=== PATIENT | female | born 1985 | race Caucasian/White ===

== ENCOUNTER 2016-08-24 19:52 | Emergency (ER) | payer OTHER ==
[~2016-08-24] VITALS: Ht 154.9 cm; Wt 77.3 kg
[~2016-08-24 19:52] MED LIST: CIPR-231 PO; HYDR-4003 PO; IBUP800T28 PO; LEVO200T PO; ONDA4TAB6 PO
[2016-08-24 19:53] VITALS: BP 116/79; PULSE 73; RESP 12; O2SAT 100
--- NOTE | 2016-08-24 20:21 | DRSVH ---
PROCEDURE: X-RAY RIGHT FOOT COMPLETE, MINIMUM THREE VIEWS ([id number]) INDICATIONS: right foot pain TECHNIQUE: 3 views of the foot were acquired. COMPARISON: None. FINDINGS: Bones: No fractures or dislocations. No suspicious bony lesions. First [facility] osteoarthritic degenera tive changes are noted. Soft tissues: No tibiotalar joint effusion. Achilles tendon appears normal. IMPRESSION: No fracture. No acute osseous lesion. If there are persistent symptoms or clinical suspi cion for pathology, then repeat radiographs or advanced imaging (CT, MRI or bone scan) should be cons idered for further evaluation. Dictated by: Remedios Rodriguez MD, PhD on 08/24/2016 at 20:18 Approved by: Remedios Rodriguez MD, PhD on 08/24/2016 at 20:19
--- NOTE | 2016-08-24 21:11 | ED.REPORT ---
HPI-Extremity Problem Lower Date of Service Aug 24, 2016 ED Provider: MD Mark This is a 31 year old female with a history of kidney disease, migraines, chronic low back pain, kidney stones, hypothyroidism presenting to the emergency department due to right foot pain that began one week ago due to traumatic injury. Patient reports a metal tool falling directly onto her right foot. She describes progressively worsening pain with increasing swelling. Associated symptoms include intermittent numbness of the foot. She denies left foot pain, weakness, or any other injuries at this time. Nursing Notes Stated Complaint: FOOT PAIN, FELL A FEW WEEKS AGO Chief Complaint: Extremity Trauma Nursing Notes Reviewed: Yes Allergies: Coded Allergies: Cephalosporins (Verified Allergy, Severe, CEFTRIAXONE, 08/24/16) azithromycin (Verified Allergy, Severe, 08/24/16) erythromycin ethylsuccinate (Verified Allergy, Severe, 08/24/16) sertraline (Verified Allergy, Severe, 08/24/16) sulfamethoxazole (Verified Allergy, Severe, 07/13/12) Replaces SULFAMETHOXAZ trimethoprim (Verified Allergy, Severe, 02/27/09) Replaces SULFAMETHOXAZ Uncoded Allergies: Azithromycin (Adverse Reaction, Severe, 08/18/03) Sertraline (Adverse Reaction, Severe, 08/18/03) Scheduled Levothyroxine-Expunged Drug, Do Not Renew! (Synthroid-Expunged Drug, Do Not Renew!) 200 Mcg Tablet 400 MCG PO DAILYAC Scheduled PRN Ibuprofen (Ibuprofen) 600 Mg Tablet 600 MG PO QID PRN PRN For Pain General Time Seen by MD: 21:10 Chief Complaint Foot injury right Hx Obtained From: Patient Arrived By: Walk-in Onset Occurred: 1 week ago Symptom Duration: Since onset Severity: Current: Moderate Pertinent Negative: Pt denies other symptoms Recent Healthcare: No recent doctor visit, No recent hospitalization Similar Sx Previous: No Past Medical History Past Medical History Chiari malformation Kidney disease Hx of migraines Chronic lower back pain Hx of kidney stones Hypothyroidism Hashimotos Past Surgical History Chiari malfortation surgery Reports: Appendectomy, , Hysterectomy Reports: Carpal tunnel, Tubal ligation Family History noncontributory Smoking History Never Smoker Social History Alcohol Use: "Social" Drug Use: THC Other Social History: Good social support, Local resident Ambulatory Status Independent Review of Systems Constitutional: Denies: Chills, Fever Musculoskeletal: Reports: Extremity pain, Extremity swelling, Denies: Back pain, Neck pain Neurologic: Denies: Change LOC, Headache, Weakness Complete sys rev & neg: except as marked. Physical Exam Initial Vital Signs Vital Signs (First) Date Time Temp Pulse Resp B/P Pulse Ox O2 Delivery O2 Flow Rate FiO2 08/24/16 19:53 36.7 73 12 116/79 100 Room Air Initial VS: Reviewed General/Constitutional: Well-developed, Well-nourished Head / Eyes: Atraumatic, Normocephalic, PERRL ENT: Mucous membranes moist, Conjunctiva normal, No scleral icterus Neck: Supple, Non-tender, Full range of motion Respiratory: Breath sounds normal, Clear to auscultation, No respiratory distress Cardiovascular: Regular rate & rhythm, Heart sounds normal, Intact distal pulses Skin: Warm, Dry, No cyanosis Neurologic: Alert, Oriented, Nonfocal Psychiatric: Mood/affect normal, Behavior normal, Normal thought content Lower Extremity / Pelvis / MS: Atraumatic, Inspection NL, Full range of motion , No swelling, Non-tender, No erythema, No deformity, Neurologic intact, Vascular intact, No edema Ankle / Foot: Neurologic intact, Vascular intact Slight swelling at the top of R foot with tenderness to palpation over the MCP and tarsals of the first ray Interpretation & Diagnostics Interpretation & Diagnostics: RIGHT FOOT X-RAY IMPRESSION: No fracture. No acute osseous lesion. If there are persistent symptoms or clinical suspicion for pathology, then repeat radiographs or advanced imaging (CT, MRI or bone scan) should be considered for further evaluation. Dictated by: Remedios Rodriguez MD, PhD on 08/24/2016 at 20:18 Approved by: Remedios Rodriguez MD, PhD on 08/24/2016 at 20:19 Re-Eval/Medical Decision Med Decision/Clinical Course 31-year-old presents a week out from an injury where she dropped a 25 pound wrench on her foot. It was better initially and is become swollen and tender again. X-rays negative for fracture. Mayur wrap postop shoe provided. Crutches provided. Requesting work note which was provided. Home with ibuprofen for pain relief. Elevation and heat per standard protocol 1 week out from a contusion injury. Follow up with PCP. Counseled Regarding: Diagnosis, Lab results, Need for follow-up, When/why to return to ED Discharge & Departure Impression: Primary Impression: Contusion, foot Encounter type: initial encounter Laterality: right Qualified Code: S90.31XA - Contusion of right foot, initial encounter Disposition: Home Discharge Condition All VS Reviewed: Yes Condition: Stable Additional Instructions: The primary issue with your injury is mechanical. It is important to reduce the swelling by elevating the foot whenever possible. You are probably past the period of time and ice as helpful. Instead, apply heat 4-5 times daily and elevate. Mayur wrap and postop shoe and crutches whenever up. Remove all to sleep. Follow up with your doctor in the office. She can make an orthopedic referral if your symptoms are not improving. Ibuprofen four times daily with food for pain. Return if any immediate issues. Referrals: Charisse Arvizu MD (PCP) Peter Ruelas MD Attestation Portions of this note were transcribed by April Fowler. I, Dr. Flores personally performed the history, physical exam and medical decision-making; I reviewed and confirmed the accuracy of the information in the transcribed note. Signed by Akbar Ross, 08/24/2016 at 06:00. copies to: Peter Ruelas MD, Christopher W MD Aug 24, 2016 21:11 APRIL FOWLER Aug 24, 2016 21:22
[2016-08-24] MEDS ORDERED: IBUP-1827 PO (21:29)
[2016-08-24 21:38] VITALS: BP 108/69; PULSE 108; O2SAT 98
== END 2016-08-24 21:57 | disposition home or self-care (01) ==
LOC: SED 19:52
DX: S90.31XA Contusion of right foot, initial encounter (principal); W20.8XXA Other cause of strike by thrown, projected or falling object, initial encounter; Y93.89 Activity, other specified; Y92.9 Unspecified place or not applicable; Y99.8 Other external cause status; E03.9 Hypothyroidism, unspecified; G89.29 Other chronic pain; Z88.2 Allergy status to sulfonamides; Z88.1 Allergy status to other antibiotic agents; Z88.8 Allergy status to other drugs, medicaments and biological substances

== ENCOUNTER 2016-11-20 13:18 | Emergency (ER) | payer OTHER ==
[~2016-11-20] VITALS: Ht 154.9 cm; Wt 74.1 kg
[~2016-11-20 13:18] MED LIST changes: -CIPR-231 PO; -HYDR-4003 PO; +IBUP-1827 PO; -IBUP800T28 PO; -ONDA4TAB6 PO
[2016-11-20 13:20] VITALS: BP 123/78; RESP 14; O2SAT 100
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
--- NOTE | 2016-11-20 14:52 | DRSVH ---
PROCEDURE: CT FACE WITHOUT CONTRAST ([id number]) INDICATIONS: nasal, maxillary pain, L side TECHNIQUE: Noncontrast 1.5 mm thick axial images acquired from the mandible through the frontal sinuses, with co bryn and sagittal reformatting. For radiation dose reduction, the following was used: automated ex posure control. COMPARISON: None. FINDINGS: Image quality: Excellent. Bones and teeth: Orbital boston are intact. Sinus boston show no fracture or deformity. Nasal bones and septum are intact. Visualized portions of the mandible demonstrate no fractures or subluxation. Zygomatic arches are intact. Pterygoid plates are intact. Visualized portions of the skull base an d auditory canals are intact. Sinuses: Paranasal sinuses are aerated, without fluid levels, mucosal thickening, or mucoceles. Mas toid air cells are aerated. Soft tissues: No edema, masses, or fluid collections. No enlarged lymph nodes. No soft tissue lace rations or debris. Vascular: Visualized vascular structures appear normal in the absence of contrast. Bony vascular fo ramina and canals are intact. IMPRESSION: No fracture. Dictated by: Remedios Rodriguez MD, PhD on 11/20/2016 at 14:48 Approved by: Remedios Rodriguez MD, PhD on 11/20/2016 at 14:51
[2016-11-20 15:14] VITALS: BP 119/80; PULSE 67; RESP 20; O2SAT 99
== END 2016-11-20 15:15 | disposition home or self-care (01) ==
LOC: SED 13:18
DX: S16.1XXA Strain of muscle, fascia and tendon at neck level, initial encounter (principal); S09.92XA Unspecified injury of nose, initial encounter; W51.XXXA Accidental striking against or bumped into by another person, initial encounter; Y93.89 Activity, other specified; Y92.009 Unspecified place in unspecified non-institutional (private) residence as the place of occurrence of the external cause; Y99.8 Other external cause status; M54.5 Low back pain; E03.9 Hypothyroidism, unspecified; Z87.442 Personal history of urinary calculi; Z98.890 Other specified postprocedural states; Z88.1 Allergy status to other antibiotic agents; Z88.8 Allergy status to other drugs, medicaments and biological substances
CPT/HCPCS: 70486; 81002; 81025; 96372; 99285; G0480; J1885

== ENCOUNTER 2017-01-20 10:47 | Emergency (ER) | payer OTHER ==
[~2017-01-20] VITALS: Ht 154.9 cm; Wt 73.6 kg
[2017-01-20 10:49] VITALS: BP_SYST 12; BP_SYST 120; BP_DIAS 84; PULSE 85; RESP 16; O2SAT 100
--- NOTE | 2017-01-20 11:22 | ED.REPORT ---
HPI-Back Pain Under 40 Date of Service Jan 20, 2017 ED Provider: Saad Davis PA-C Dayami is a 31-year-old female with a history of Chiari malformation and hypothyroid who presents to emergency department with a chief complaint of mid back pain. Patient reports first noticing the pain at work yesterday as an ache in her mid back. She reports worsening overnight and into today. Reports one episode brief of right upper quadrant pain yesterday which is resolved now. Reports some tingling sensation in her right thigh this morning which is resolved now. Admits to a history of low back pain treated with tramadol and gabapentin. Denies numbness in her abdomen. Denies numbness, weakness or pain in lower extremity. Denies fever, DM, HIV, organ transplant, immunosuppression, recent surgery, recent infection, history of back surgery, surgical implants and IV drug use. Denies bowel/bladder dysfunction and saddle anesthesia. Denies history of cancer, AAA, Marfan syndrome, Matt-Danlos syndrome. Denies urinary symptoms, abdominal pain, bowel changes, chest pain, cough, wheeze, shortness of breath. Nursing Notes Stated Complaint: BACK PAIN Chief Complaint: Back Pain or Injury Nursing Notes Reviewed: Yes Allergies: Coded Allergies: Cephalosporins (Verified Allergy, Severe, CEFTRIAXONE, 01/20/17) azithromycin (Verified Allergy, Severe, 01/20/17) erythromycin ethylsuccinate (Verified Allergy, Severe, 01/20/17) sertraline (Verified Allergy, Severe, 01/20/17) sulfamethoxazole (Verified Allergy, Severe, 01/20/17) Replaces SULFAMETHOXAZ trimethoprim (Verified Allergy, Severe, 01/20/17) Replaces SULFAMETHOXAZ Scheduled Levothyroxine-Expunged Drug, Do Not Renew! (Synthroid-Expunged Drug, Do Not Renew!) 200 Mcg Tablet 400 MCG PO DAILYAC Scheduled PRN Ibuprofen (Ibuprofen) 600 Mg Tablet 600 MG PO QID PRN PRN For Pain General Time Seen by MD: 11:03 Chief Complaint Back pain Sudden in Onset?: No Past Medical History Past Medical History Notes: back pain Past Medical History Chiari malformation Kidney disease Hx of migraines Chronic lower back pain Hx of kidney stones Hypothyroidism Hashimotos Past Surgical History Chiari malfortation surgery Reports: Appendectomy, , Hysterectomy Reports: Carpal tunnel, Tubal ligation Family History noncontributory Smoking History Never Smoker Social History Alcohol Use: "Social" Drug Use: THC Other Social History: Good social support, Local resident Ambulatory Status Independent Review of Systems Negative unless stated otherwise in history of present illness Physical Exam General: Well appearing, well developed, well nourished, no acute distress. Head: Atraumatic, normocephalic. Eyes: No scleral icterus or injection. No discharge. Vision grossly intact. ENT: Voice clear, hearing grossly intact. Respiratory: Regular rate and rhythm. Breath sounds present, clear to auscultation and equal bilaterally. No respiratory distress. No increased work of breathing, speaks in complete sentences. Cardiovascular: Regular rate and rhythm, without murmur, gallop or rub. No pedal edema. Gastrointestinal: Abdomen flat and non-tender without guarding or rebound. Bowel sounds normoactive. Skin: Warm and dry. Back: Positive for paraspinal tenderness in the lower thoracic and upper lumbar region. Normal to inspection. Negative midline spinous process tenderness. Neurological: Normal gait. Hip flexion, knee extension, ankle dorsiflexion and plantarflexion strength 5/5 B/L. Patellar and Achilles reflexes present and equal B/L. Sensation to sharp touch intact at medial leg, dorsal foot and lateral foot B/L. negative straight leg raise, negative seated cross leg raise. Sensation to light touch normal on abdomen. Psychological: Alert and oriented. Speech appropriate, linear and logical. Behavior appropriate. Initial Vital Signs Vital Signs (First) Date Time Temp Pulse Resp B/P Pulse Ox O2 Delivery O2 Flow Rate FiO2 01/20/17 10:49 36.8 85 16 120/84 100 Room Air Interpretation & Diagnostics Lab Results Interpretation Test 01/20/17 11:13 Hold Urine Received (Received) Re-Eval/Medical Decision Med Decision/Clinical Course 31-year-old female with a history of Chiari malformation Presents with chief complaint of mid back pain. Patient reports gradual onset through the course of the day yesterday, worsening last night while in bed and worsening into today. Associated with one episode of brief sharp right upper quadrant pain and another episode of tingling in the right thigh. Both resolved. Denies red flag symptoms. Physical examination reveals paraspinal tenderness in the lower thoracic and upper lumbar region. neurological examination is normal. Vital signs are normal , specifically afebrile. is negative, dip urinalysis is normal. Patient reports no history of trauma, there are no neurological deficits and I see no indication for imaging at this time. Back pain is without red flag signs or symptoms for acute disc herniation, cauda equina, infection, hematoma, trauma, pyelonephritis, nephrolithiasis, AAA , cancer. I believe this is musculoskeletal back pain. Treatment is initiated with ketorolac, acetaminophen Advise regarding [id number] analgesia, and supplementing with her prescribed tramadol. (I was initially under the impression the patient was being treated with Vicodin, has discussed discharge instructions. This was verbally changed to tramadol at discharge) Advised regarding primary care follow-up, provided emergency return precautions. Patient verbalized understanding of, and consent to, the plan. Discharge & Departure Impression: Primary Impression: Acute thoracic back pain Back pain laterality: bilateral Qualified Code: M54.6 - Pain in thoracic spine Disposition: Home All VS Reviewed: Yes Condition: Stable Additional Instructions: Evaluation in the emergency department for back pain. History and physical are reassuring for a dangerous neurological condition. History does not suggest that this is likely to be a spinal fracture. Your neurological examination is normal, indicating there is no damage to the nerves in your back. I see no indication to perform imaging tests at this time. I believe this is musculoskeletal pain and treatment is largely symptomatic. Rest is important, especially for the next couple of days, but avoid total bed rest. Reasonable activity as tolerated is the best. The pain is best treated with 600 mg of ibuprofen (Advil, Motrin) every 6 hours , or 1000 mg of acetaminophen (Tylenol) every 6 hours. These drugs can be taken at the same time for more severe pain. Alternatively you can substitute your prescribed Vicodin for one or both of the Tylenol tablets. Do not take Vicodin with alcohol or drive while taking Vicodin. Follow-up with your primary care provider in the next week or two to be sure your recovery is progressing as expected. Return the emergency department for new or worsening symptoms such as loss of bowel/bladder control, numbness between your legs, new weakness/numbness or high fever. Referrals: Charisse Arvizu MD (PCP) EDSupervising Provider for APC: Serg Felton MD copies to: Charisse Arvizu MD, Seth PA-C Jan 20, 2017 11:22
== END 2017-01-20 12:38 | disposition home or self-care (01) ==
LOC: SED 10:47
DX: M54.6 Pain in thoracic spine (principal); G89.29 Other chronic pain; E03.9 Hypothyroidism, unspecified; G43.909 Migraine, unspecified, not intractable, without status migrainosus; Z90.710 Acquired absence of both cervix and uterus; Z87.442 Personal history of urinary calculi; Z88.1 Allergy status to other antibiotic agents; Z88.2 Allergy status to sulfonamides; Z88.8 Allergy status to other drugs, medicaments and biological substances
CPT/HCPCS: 96372; 99284; J1885